=== PATIENT | female | born 2000 | race Asian ===

== ENCOUNTER 2025-05-06 11:19 | Outpatient (AMB) | payer OTHER, SELFPAY ==
--- NOTE | 2025-05-06 11:22 | A.OFFPC_ITS ---
Vital Signs 3 05/06/25 11:26 Height 4 ft 10 in Weight 109 lb BMI 22.8 BP 100/66 Blood Pressure Location Lt brachial Position Sitting Respiration 16 Pulse 58 Pulse Source Pulse Oximeter Temp 97.1 F Temp Source Temporal Artery Scan Pulse Oximetry (%) 98 Oxygen Delivery Method Room Air Intake Visit Reasons: establish care Intake Note: c/o itchiness on Left breast and there was a blister and used cortisone. Scientific Investigator Required: No Accompanied by: Self / Same As Patient Allergies No Known Allergies Allergy (Verified 05/06/25 11:36) Medication List - Last Reconciled 05/06/25 by Millie West PA-C ibuprofen 200 mg PO Q6H PRN Tobacco use date assessed: 05/06/25 Dental Screening Dental Screen Date: 05/06/25 Did you have a dental visit in the last 12 months?: Yes Did you have a dental problem in the last 6 months where you did not have access to dental care?: No Was dental information given to patient?: Patient has dentist HPI establish care 2 HPI0 Details 24 year old female coming to the office for the first time. Presenting for a new patient visit to establish care and evaluate a rash on her left breast. She reports the onset of a blister-like, pruritic lesion on her left breast in August of this year. The lesion is now dry, but she experiences intermittent itching, which improves with the application of cortisone cream. She notes that certain foods may trigger the itchiness. She denies any other lesions on the body. vaccines: UTD declines flu today PFSH Family History Paternal Aunt Cyst of breast, benign solitary Paternal Aunt Cyst, ovarian Social History Housing: House Patient Tobacco Use Status: Never used Tobacco e-Cigarette/Vaping Use: Never Used service: No Current occupational status: employed Current occupation: [employer] Cognitive needs: No Hearing needs: No Vision needs: No Female Reproductive History Menstrual Duration of menses: 6-7 days control method: none Total pregnancies: 0 History of abnormal pap smear: No Questionnaire PHQ-9 Over the last 2 weeks, how often have you been bothered by any of the following problems? 1. Little interest or pleasure in doing things: not at all 2. Feeling down, depressed, or hopeless: not at all 3. Trouble falling or staying asleep, or sleeping too much: not at all 4. Feeling tired or having little energy: not at all 5. Poor appetite or overeating: not at all 6. Feeling bad about yourself - or that you are a failure or have let yourself or your family down: not at all 7. Trouble concentrating on things, such as reading the newspaper or watching television: not at all 8. Moving or speaking so slowly that other people could have noticed. Or the opposite - being so fidgety or restless that you have been moving around a lot more than usual: not at all 9. Thoughts that you would be better off or of hurting yourself in some way: not at all Total score: 0 Depression Screening Interpretation: Negative Depression Screening Done: Yes Source: Developed by Drs. Chacho Coffman, Emily Gayle, Maurilio Graf and colleagues, with an educational juliet from [employer]. Thrive Questionnaire Date Thrive assessed: 05/06/25 I am a: Patient What is your living situation today?: I have a steady place to live Within the past 12 months, did the food you bought not last and you didn't have the money to get more?: Never true Within the past 12 months, did you worry whether your food would run out before you got money to buy more?: Never true Do you have trouble paying for medicines?: No Do you have trouble getting transportation to medical appointments?: No Do you have trouble paying your heating and electricity bill?: No Do you have trouble taking care of your child, family member or friend?: No Do you have trouble with day-to-day activities such as bathing, preparing meals, shopping, managing finances, etc.?: No Are you currently unemployed and looking for a job?: No Are you interested in more education?: Yes Please select the resources that you would like help with: None Currently or been in a relationship where the following occur: No concerns reported THRIVE Score: 0 AUDIT C Alcohol Use Questionnaire (AUDIT-C) 1. How often do you have a drink containing alcohol?: Never 2. How many drinks containing alcohol do you have on a typical day when you are drinking?: 1 or 2 3. How often do you have six or more drinks on one occasion?: Never Total Score: 0 YAIR-7 AMB Questionnaire YAIR-7 Date YAIR - 7 assessed: 05/06/25 Feeling nervous, anxious, or on edge: 0 = Not at all Not being able to stop or control worryin = Not at all Worrying too much about different things: 0 = Not at all Trouble relaxin = Not at all Being so restless that it is hard to sit still: 0 = Not at all Becoming easily annoyed or irritable: 0 = Not at all Feeling afraid as if something awful might happen: 0 = Not at all Total YAIR-7 score (0-4 normal; 5-9 mild; 10-14 moderate; 15-21 severe): 0 Source: Developed by Drs. Chacho Coffman, Emily Gayle, Maurilio Graf and colleagues, with an educational juliet from [employer]. Review of Systems Const Denies body aches, Denies chills, Denies fever(s), Denies headache(s) and Denies poor appetite Eyes Reports no additional complaints ENT Denies dysphagia, Denies dizziness, Denies headache(s) and Denies odynophagia Card Denies chest pain, Denies syncope, Denies edema, Denies irregular heart rhythm, Denies lightheadedness and Denies dyspnea Resp Denies cough and Denies dyspnea GI Denies abdominal pain, Denies constipation, Denies dysphagia, Denies diarrhea, Denies nausea, Denies odynophagia and Denies vomiting Reports no additional complaints Musc Reports no additional complaints and Denies abnormal gait Skin/Breast Reports system reviewed and no additional complaints, except as documented Neuro Denies abnormal gait, Denies dizziness, Denies syncope and Denies headache(s) Psych Reports no additional complaints Physical exam (Primary Care) Vital Signs: Last Vital Signs Temp 97.1 F 05/06/25 11:26 Pulse 58 05/06/25 11:26 Resp 16 05/06/25 11:26 BP 100/66 05/06/25 11:26 Pulse Ox 98 05/06/25 11:26 Oxygen Delivery Method Room Air 05/06/25 11:26 BMI result Body Mass Index 22.8 Tobacco/Smoking Status: Tobacco use Status Tobacco use date assessed 05/06/25 05/06/25 11:34 Patient Tobacco Use Status Never used Tobacco 05/06/25 11:34 e-Cigarette/Vaping Use Never Used 05/06/25 11:34 PHQ-9: PHQ-9 Score PHQ-9: Total score 0 05/06/25 11:45 Depression Screening Interpretation: Negative Thrive Assessment: Date of Thrive Assessment Date Thrive assessed 05/06/25 05/06/25 11:34 Currently or been in a relationship where the following occur: No concerns reported Const General: cooperative, healthy appearing, comfortable and no acute distress Orientation/consciousness: patient oriented x3 HENMT Head: Yes normocephalic Ears: hearing grossly normal bilaterally General nose exam: Normal external nose present Eyes General: appearance normal, both eyes and all related structures Conjunctivae: conjunctivae normal Neck Neck: Yes full ROM and Yes no lymphadenopathy Chest Other: Windows Architect was offered and declined. No tenderness to palpation over entirety of bilateral breasts. No palpated masses, no nipple retraction, skin dimpling or any other lesions noted Chest/axillae images: 2 1. Area of nontender, dry, hyperpigmented skin without vesicular lesions, flaking or dimpling Resp Effort & Inspection: normal respiratory effort Auscultation: clear to auscultation bilaterally, no crackles, no rales, no rhonchi and no wheezes Cardio Rate: regular rate Rhythm: regular rhythm Skin General skin exam: no rashes or lesions noted Neuro General: patient oriented x3 Gait exam (Neuro): Normal gait present Extrem General: Yes normal to inspection, Yes full ROM and No edema Psych Affect: normal affect Attitude: cooperative Insight: Good insight present (Psych) Judgement: Good judgement present (Psych) Coding Level of Care Code New Pt Level 4 (71890) Diagnoses Heavy menses N92.0 Rash R21 Encounter to establish care Z76.89 Assessment & Plan Assessment & Plan (1) Heavy menses: Code(s): N92.0 - Excessive and frequent menstruation with regular cycle Category: Medical Plan: The patient reports a history of heavy menstrual periods. This will be further evaluated by the spot billing clerk during her upcoming consultation. (2) Rash: Code(s): R21 - Rash and other nonspecific skin eruption Category: Medical Plan: The patient's primary concern is a persistent, pruritic rash on her left breast that started in August. The leading differential diagnosis is eczema, given the appearance, chronicity, and positive response to topical cortisone. Although the physical exam revealed no palpable masses, a referral for breast imaging is warranted as a precaution for any non-healing breast lesion. The plan includes continuing cortisone cream as needed for symptomatic relief, a referral to Dermatology for further evaluation, and breast imaging. The patient was also advised to monitor for potential food triggers, and blood work will include a test for gluten sensitivity. (3) Encounter to establish care: Code(s): Z76.89 - Persons encountering health services in other specified circumstances Category: Medical Plan: As a new patient establishing care, health maintenance was addressed. The patient is overdue for cervical cancer screening; therefore, a referral to Gynecology will be placed for a Pap smear. Fasting blood work was ordered, and the patient agreed to STD screening. A follow-up visit is scheduled in two months for a complete annual physical exam and to review results. Plan This note was constructed using voice recognition software. While every effort has been made to ensure accuracy and communications equipment installer, still areas may have been included sometimes these areas may affect the content or meeting of the given symptoms. Total time spent caring for the patient today was 30 minutes. This includes time spent before the visit reviewing the chart, time spent during the visit, and time spent after the visit and documentation. Patient was informed and verbally consented to the use of an ambient scribe for clinic note documentation during this visit. Orders: Orders 2 TSH reflex Free T4 Today Z13.29 - Encounter for screening for other suspected endocrine disorder Vitamin D 25-OH Total Today Z13.21 - Encounter for screening for nutritional disorder Lipid Panel Today Z13.220 - Encounter for screening for lipoid disorders CT NG by PCR Vag/Cerv Today Z00.00 - Encounter for general adult medical examination without abnormal findings, Z11.3 - Encounter for screening for infections with a predominantly sexual mode of transmission Vitamin B12 and Folate Today Z13.21 - Encounter for screening for nutritional disorder UA CC w/rflx Micro + Cult Today Z13.9 - Encounter for screening, unspecified Comprehensive Met. Panel Today Z00.00 - Encounter for general adult medical examination without abnormal findings Complete Blood Count Auto Diff Today Z13.0 - Encounter for screening for diseases of the blood and blood-forming organs and certain disorders involving the immune mechanism IRON PROFILE Today N92.0 - Excessive and frequent menstruation with regular cycle US breast LT limited Today R21 - Rash and other nonspecific skin eruption MM diagnostic mammo unilat LT Today R21 - Rash and other nonspecific skin eruption Transglutaminase Ab IgG Today R21 - Rash and other nonspecific skin eruption Referrals 2 SWIMMING POOL ATTENDANT Referral Z12.4 - Encounter for screening for malignant neoplasm of cervix Dermatology Referral R21 - Rash and other nonspecific skin eruption
[2025-05-06 11:26] VITALS: BP 100/66; PULSE 58; RESP 16; TEMP 36.2; O2SAT 98; BMI 22.8
--- OUTSIDE RECORDS SUMMARY | 2025-05-06 12:57 | XMS_ITS | Clinical Summary ---
Author Organization [address] Address [address] [place] [phone] Phone Care Team Providers Care [employer] Planner Name Role Phone Physician, No Pcp Primary Care Provider Unavaila ble Allergies No known active allergies Encounters Date Type Department Care Team Description 02/21/2025 2:30 PM EDT Office Visit Walk-In Clinic - [address] [phone] Navi Manzo PA Tonsillitis (Primary Dx) from Last 3 Months Social History Tobacco Use Types Packs/Day Years Used Date Smoking Tobacco: Never Assessed Comments Unknown Sex and Gender Information Value Date Recorded Sex Assigned at Not on file Legal Sex Female 1:07 PM EDT Gender Identity Not on file Sexual Orientation Not on file Last Filed Vital Signs Vital Sign Reading Time Taken Comments Blood Pressure 104/80 02/21/2025 2:29 PM EDT Pulse 52 02/21/2025 2:29 PM EDT Temperature 37.3 C (99.2 F) 02/21/2025 2:29 PM EDT Respiratory Rate 16 02/21/2025 2:29 PM EDT Oxygen Saturation 100% 02/21/2025 2:29 PM EDT Inhaled Oxygen Concentration - - Weight - - Height - - Body Mass Index - - Plan of Treatment Health Maintenance Due Date Last Done Comments HPV Vaccines (1 - 3-dose series) 07/05/2014 DTaP,Tdap,and Td Vaccines (1 - Tdap) 07/05/2018 Hepatitis B Vaccines (1 of 3 - 19+ 3-dose series) 07/05/2018 Cervical Cancer Screening: P ap Smear 07/05/2020 Depression Screening 05/07/2024 COVID-19 Vaccine ( - 2024-2 6 season) 2025 Influenza Vaccine (#1) 2025 HIV Screening 02/21/2025 Hepatitis C Screening 02/21/2025 Social Influencers of Health Screening 02/21/2025 RSV Immunization Adult Patie nts (1 - 1-dose 75+ series) 07/05/2074 HIB Vaccines Aged Out No longer eligi ble based on patient's age to complete this topic Hepatitis A Vaccines Aged Out No long er eligible based on patient's age to complete this topic IPV Vaccines Aged Out No longer eligi ble based on patient's age to complete this topic MMR Vaccines Aged Out No longer eligi ble based on patient's age to complete this topic Meningococcal ACWY Vaccine Aged Out N o longer eligible based on patient's age to complete this topic Meningococcal B Vaccine Aged Out No l onger eligible based on patient's age to complete this topic Pneumococcal Vaccine: Pediat rics (0 to 5 Years) and At-Risk Patients (6 to 49 Years) Aged Out No longer eligible b ased on patient's age to complete this topic RSV Immunization Patients Un abraham 20 months Aged Out No longer eligible b ased on patient's age to complete this topic Varicella Vaccines Aged Out No longer eligible based on patient's age to complete this topic Procedures Procedure Name Priority Date/Time Associated Diagnosis Comments CULTURE THROAT Routine 02/21/2025 2:59 PM EDT Tonsillitis POC RAPID STREP A Routine 02/21/2025 2:4 3 PM EDT Tonsillitis POC RAPID [id number], MOLECULAR Routine 02/21/2025 2:43 PM EDT Tonsillitis from Last 3 Months Results * Culture throat (02/21/2025 2:59 PM EDT) Culture, Throat No pathogens isolated. 02/23/2025 10:46 AM EDT [facility] Swab Structure of anterior region of neck / Unknown Non-blood Collection / Unknown 02/21/2025 2:59 PM EDT 02/21/2025 2:59 PM EDT [facility] MICROBIOLOGY - GENERAL ORDERABLES Final Result [facility] [address] [place] [address], [place] [phone] * Poc Rapid [id number], MOLECULAR (02/21/2025 2:43 PM EDT) COVID-19/SARS- COV-2 Rapid POC Negative Negative Swab Nasopharyngeal structure / Unknown 02/21/2025 2:43 PM EDT Navi [facility] POINT OF CARE TEST ENTER/E DIT ORDERABLES Final Result * POC rapid strep A manually resulted (02/21/2025 2:43 PM EDT) Rapid Strep A Screen POC Negative Negative Swab Structure of anterior region of neck / Unknown 02/21/2025 2:43 PM EDT Navi [facility] POINT OF CARE TEST ENTER/E DIT ORDERABLES Final Result from Last 3 Months Insurance [facility] Care Teams [employer] Planner Relationship Specialty Start Date End Date Physician, No Pcp PCP - General 02/21/25
== END 2025-05-06 12:19 | disposition home or self-care (01) ==
DX: N92.0 Excessive and frequent menstruation with regular cycle (principal); R21 Rash and other nonspecific skin eruption; Z76.89 Persons encountering health services in other specified circumstances